=== PATIENT | female | born 1965 | race American Indian/Alaskan Native ===

== ENCOUNTER 2019-08-09 15:54 | Emergency (ER) | payer BC ==
[2019-08-09 16:02] VITALS: BP 176/105
--- NOTE | 2019-08-09 19:43 | XRay Report ---
LEFT KNEE 3 VIEWS PORTABLE 1913 INDICATION: MAIN: pain; Pt. c/o right knee pain. Pt. unsure of mechanism of injury. COMPARISON: None available. FINDINGS: No fractures or dislocations are seen. Mild degenerative changes are seen most affecting th e patellofemoral and medial compartments. Medial joint space narrowing is seen with slight genu varus . There may be a small joint effusion. Signer Name: Shelton Cobos MD Signed: 08/09/2019 7:39 PM Workstation Name: [id number]
--- NOTE | 2019-08-09 20:10 | Emergency Department Report ---
ED Lower Extremity HPI - General Chief Complaint: Extremity Problem,Nontraumatic Stated Complaint: RT KNEE PAIN Time Seen by Provider: 08/09/19 19:38 Source: patient Mode of arrival: Ambulatory Limitations: No Limitations - History of Present Illness Initial Comments: 53-year-old female presents to the emergency room complaining of right knee pain times a couple of months. Patient is on sure of any mechanism of injury. Patient states the other day she had fell secondary to knee buckling and she landed on a wall. Patient states that she has been taken ibuprofen has been taking 2 tablets elevation ice and heat pad. Patient states that walking makes her knee worse better make resting makes it better. 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 Patient denies any other past medical history reports no known drug allergies and currently does not take any medications on a daily basis. Patient does have a primary care provider Dr. Teresa Skinner. Onset/Timin -: month(s) Injury: Knee: Right Type of Injury: unknown Place: work Severity: moderate Improves With: NSAID, rest Context: walking Treatments Prior to Arrival: cold therapy, NSAIDS - Related Data Previous Rx's Medication Instructions Recorded Last Taken Type Ibuprofen [Motrin 800 MG tab] 800 mg PO Q8HR PRN #21 tablet 08/09/19 Unknown Rx Allergies Allergy/AdvReac Type Severity Reaction Status Date / Time No Known Allergies Allergy Unverified 08/09/19 16:03 ED Review of Systems ROS: Stated complaint: RT KNEE PAIN Other details as noted in HPI Comment: All other systems reviewed and negative ED Past Medical Hx - Past Medical History Previous Medical History?: No - Surgical History Past Surgical History?: No - Social History Smoking Status: Current Every Day Smoker Substance Use Type: None - Medications Home Medications: Home Medications Medication Instructions Recorded Confirmed Last Taken Type Ibuprofen [Motrin 800 MG tab] 800 mg PO Q8HR PRN #21 tablet 08/09/19 Unknown Rx ED Physical Exam - General Limitations: No Limitations General appearance: alert, in no apparent distress, obese - Head Head exam: Present: atraumatic, normocephalic - Eye Eye exam: Present: normal appearance - ENT ENT exam: Present: mucous membranes moist - Neck Neck exam: Present: normal inspection - Respiratory Respiratory exam: Present: normal lung sounds bilaterally. Absent: respiratory distress - Cardiovascular Cardiovascular Exam: Present: regular rate, normal rhythm. Absent: systolic murmur, diastolic murmur, rubs, gallop - GI/Abdominal GI/Abdominal exam: Present: soft, normal bowel sounds - Expanded Lower Extremity Exam Right Knee exam: Present: full ROM. Absent: tenderness, swelling, erythema Lower Leg exam: Present: normal inspection, full ROM. Absent: tenderness, swelling - Back Exam Back exam: Present: normal inspection, full ROM - Neurological Exam Neurological exam: Present: alert, oriented X3 - Psychiatric Psychiatric exam: Present: normal affect, normal mood - Skin Skin exam: Present: warm, dry, intact, normal color. Absent: rash ED Course Vital Signs 08/09/19 16:01 Temperature 96.9 F L Pulse Rate 97 H Respiratory 18 Rate Blood Pressure 176/105 O2 Sat by Pulse 98 Oximetry ED Lower Extremity MDM - Radiology Data Radiology results: report reviewed Referring Physician:CINDY DONISPatient Name:MATEO MCKEONPatient ID:[id number] of :[id number]:FemaleAccession:[id number] Date:[id number] Status:Finalized Findings [facility] [address] [place] [address] XRay Report Signed Patient: MATEO MCKEON MR#: [id number] : 1965 Acct:[id number] Age/Sex: 53 / F ADM Date: 08/09/19 Loc: ED Attending Dr: Ordering Physician: CARMINA CORNELIUS Date of Service: 08/09/19 Procedure(s): XR knee 3V RT Accession Number(s): [id number] cc: CARMINA CORNELIUS Fluoro Time In Minutes: LEFT KNEE 3 VIEWS PORTABLE 1913 INDICATION: MAIN: pain; Pt. c/o right knee pain. Pt. unsure of mechanism of injury. COMPARISON: None available. FINDINGS: No fractures or dislocations are seen. Mild degenerative changes are seen most affecting the patellofemoral and medial compartments. Medial joint space narrowing is seen with slight genu varus. There may be a small joint effusion. Signer Name: Shelton Cobos MD Signed: 08/09/2019 7:39 PM Workstation Name: [id number] Transcribed By: CRA Dictated By: Shelton Cobos MD Electronically Authenticated By: Shelton Cobos MD Signed Date/Time: 08/09/191938 DD/ 36 TD/TT: - Medical Decision Making 53-year-old female presents to the emergency room complaining of right knee pain times a couple of months. Patient is on sure of any mechanism of injury. Patient states the other day she had fell secondary to knee buckling and she landed on a wall. Patient states that she has been taken ibuprofen has been taking 2 tablets elevation ice and heat pad. Patient states that walking makes her knee worse better make resting makes it better. 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 Patient denies any other past medical history reports no known drug allergies and currently does not take any medications on a daily basis. Patient does have a primary care provider Dr. Teresa Skinner. X-rays show some mild degenerative joint disease. AKA arthritis. Recommendation to patient to follow-up with an orthopedic provider. She can take ibuprofen 600 to 800 mg every 8 hours as needed for pain. Critical care attestation.: If time is entered above; I have spent that time in minutes in the direct care of this critically ill patient, excluding procedure time. ED Disposition Clinical Impression: Degenerative joint disease of knee, right, Severely overweight Disposition: DC-01 TO HOME OR SELFCARE Is pt being admited?: No Does the pt Need Aspirin: No Condition: Stable Instructions: Osteoarthritis (ED), Obesity (ED), Ibuprofen (By mouth) Additional Instructions: X-ray shows that you have degenerative joint disease which is osteoarthritis. I recommend ibuprofen and to follow-up with an orthopedic provider. Please be sure to eat when taking ibuprofen and to increase your water intake when taking ibuprofen. Follow-up with your primary care provider. Prescriptions: Ibuprofen [Motrin 800 MG tab] 800 mg PO Q8HR PRN #21 tablet PRN Reason: Pain , Severe (7-10) Referrals: TERESA SKINNER MD [Primary Care Provider] - 3-5 Days Forms: Work/School Release Form(ED)
== END 2019-08-09 20:20 | disposition home or self-care (01) ==
LOC: ED 15:54
DX: M17.11 Unilateral primary osteoarthritis, right knee (principal); E66.3 Overweight; F17.200 Nicotine dependence, unspecified, uncomplicated; Z79.899 Other long term (current) drug therapy
CPT/HCPCS: 99283